=== PATIENT | male | born 1955 | race Caucasian/White ===

== ENCOUNTER 2018-01-27 08:15 | Day surgery (SDC) | payer OTHER ==
[2018-01-26 10:21] VITALS: BMI 23.8
[~2018-01-27 08:15] MED LIST: LACTATED RINGERS 1,000 ML IV SCH
[2018-01-27 09:21] VITALS: RESP 16; TEMP 98.2
[2018-01-27] MEDS ORDERED: LIDOCAINE 1% 20 ML VIAL (10MG/ML) FOR IV START INTRADERMA ONE (09:26)
[2018-01-27] MEDS ORDERED: LIDOCAINE 1% INJ 10MG/ML (20 ML MDV) ONE (09:38)
[2018-01-27] MEDS ORDERED: PROPOFOL 10 MG/ML 20 ML VIAL IV ONE (09:38)
--- NOTE | 2018-01-27 09:52 | P.PCN ---
Date of Procedure: 01/27/18 Procedure(s) Performed: BRIEF HISTORY: Patient is a 62-year-old pleasant male, scheduled for an elective colonoscopy as a part of evaluation of history of colon polyps. PROCEDURE PERFORMED: Colonoscopy with snare polypectomy. PREOPERATIVE DIAGNOSIS: History of colon polyps IV sedation per Anesthesia. PROCEDURE: After informed consent was obtained, the patient, was brought into the endoscopy unit. IV sedation was administered by Anesthesia under continuous monitoring. Digital rectal examination was normal. Initially the Olympus CF- 160 flexible video colonoscope was then inserted in the rectum, gradually advanced into the cecum without any difficulty. Careful examination was performed as the scope was gradually being withdrawn. Ileocecal valve and the appendiceal orifice were visualized and appeared normal. Prep was excellent. In the base of the cecum there was a 1.5 cm broad-based polyp removed by snare polypectomy Mucosa of the cecum, ascending colon, appeared normal. In the transverse colon there was a 5 mm polyp removed by snare polypectomy. The rest of the transverse colon, descending colon, sigmoid colon, and rectum appeared normal. In the distal sigmoid colon there was a 1 cm polyp removed by snare polypectomy. Retroflexion was performed in the rectum and no lesions were seen. The patient tolerated the procedure well. IMPRESSION: 1.5 and admitted broad-based cecal polyp status post snare polypectomy 5 mm transverse colon polyp status post snare polypectomy. 1 cm distal sigmoid colon polyp status post polypectomy RECOMMENDATIONS: Findings of this examination were discussed with the patient as well as his family. He was advised to follow with the biopsy results. If the biopsy shows a tubular adenoma, he can have a repeat colonoscopy in 3 years.
[2018-01-27 10:39] VITALS: BP 153/80; PULSE 73
== END 2018-01-27 11:08 | disposition home or self-care (01) ==
LOC: ORWHC2ENDO 08:15
PROVIDERS: ATTEND Internal Medicine Gastroenterology
DX: Z12.11 Encounter for screening for malignant neoplasm of colon (principal); D12.0 Benign neoplasm of cecum; K63.5 Polyp of colon; E78.5 Hyperlipidemia, unspecified; K21.9 Gastro-esophageal reflux disease without esophagitis; Z86.010 Personal history of colon polyps; Z88.0 Allergy status to penicillin; Z79.1 Long term (current) use of non-steroidal anti-inflammatories (NSAID); Z79.82 Long term (current) use of aspirin; Z79.899 Other long term (current) drug therapy
CPT/HCPCS: 88305; 45385; J2001; J2704

== ENCOUNTER 2021-01-23 07:24 | Day surgery (SDC) | payer MEDICARE, OTHER ==
[2021-01-21 11:44] VITALS: BMI 24.3
[~2021-01-23 07:24] MED LIST changes: +LIDOCAINE 1% (10MG/ML) FOR IV START INTRADERMA PRN
[2021-01-23 08:09] VITALS: RESP 16; TEMP 96.9
[2021-01-23] MEDS ORDERED: PROPOFOL 10 MG/ML 20 ML VIAL IV ONE (09:06)
--- NOTE | 2021-01-23 09:24 | P.PCN ---
Date of Procedure: 01/23/21 Procedure(s) Performed: BRIEF HISTORY: Patient is a 65-year-old pleasant white male scheduled for an elective colonoscopy as a part of evaluation of prior history of colon polyps. Last colonoscopy was 3 years ago. PROCEDURE PERFORMED: Colonoscopy with snare polypectomy. PREOPERATIVE DIAGNOSIS: History of colon polyps. IV sedation per Anesthesia. PROCEDURE: After informed consent was obtained, the patient, was brought into the endoscopy unit. IV sedation was administered by Anesthesia under continuous monitoring. Digital rectal examination was normal. Initially the Olympus CF-160 flexible video colonoscope was then inserted in the rectum, gradually advanced into the cecum without any difficulty. Careful examination was performed as the scope was gradually being withdrawn. Ileocecal valve and the appendiceal orifice were visualized and appeared normal. Prep was excellent. Mucosa of the cecum appeared normal. There was a 5 mm polyp in the base of cecum there was removed by snare polypectomy. In the ascending colon there was a 1.5 cm broad-based polyp removed by snare polypectomy. Rest of the in the transverse colon there was a 3 mm and 5 mm sessile polyp removed by snare polypectomy., ascending colon, transverse colon, descending colon, sigmoid colon, and rectum appeared normal. Retroflexion was performed in the rectum and no lesions were seen. The patient tolerated the procedure well. IMPRESSION: 5 mm cecal polyp status post polypectomy 1.5 cm broad-based ascending colon polyp status post polypectomy 3 mm and 5 mm transverse colon polyp status post snare polyp RECOMMENDATIONS: Findings of this examination were discussed with the patient as well as his family.. He was advised to follow with the biopsy results. If the biopsy shows an adenoma he can have a repeat colonoscopy in 3 years.
[2021-01-23 09:45] VITALS: BP 130/88; PULSE 64
== END 2021-01-23 10:07 | disposition home or self-care (01) ==
LOC: ORWHC2ENDO 07:24
PROVIDERS: ATTEND Internal Medicine Gastroenterology
DX: Z12.11 Encounter for screening for malignant neoplasm of colon (principal); D12.0 Benign neoplasm of cecum; D12.2 Benign neoplasm of ascending colon; D12.3 Benign neoplasm of transverse colon; Z86.010 Personal history of colon polyps; I10 Essential (primary) hypertension; E78.5 Hyperlipidemia, unspecified; Z88.0 Allergy status to penicillin; Z79.1 Long term (current) use of non-steroidal anti-inflammatories (NSAID); Z79.899 Other long term (current) drug therapy
CPT/HCPCS: 45385; 88305

== ENCOUNTER → 2022-09-01 | Outpatient (CLI) | payer MEDICARE, OTHER ==
--- NOTE | 2022-09-02 06:07 | MR ---
EXAMINATION TYPE: MR knee RT wo con DATE OF EXAM: 09/01/2022 COMPARISON: Outside right knee x-ray August 08, 2022 HISTORY: Right knee pain x 2 mos, no hx of trauma. TECHNIQUE: Multiplanar, multisequence imaging of the right knee is performed without IV contrast. FINDINGS: MEDIAL MENISCUS: Some medial extrusion of medial meniscus on coronal images. [place] shaped increase d signal posterior horn extends to central body abutting the inferior articular surface. LATERAL MENISCUS: Anterior and posterior horns are intact without tear. CRUCIATE LIGAMENTS: The anterior and posterior cruciate ligaments are intact and unremarkable. COLLATERAL LIGAMENTS: The medial collateral ligament and lateral collateral ligament complex are inta ct and unremarkable. EXTENSOR MECHANISM: Visualized quadriceps and patellar tendons are intact. EFFUSION: No significant suprapatellar joint effusion. POPLITEAL CYST: Small amount of ill-defined fluid consistent with small leaking popliteal cyst. Some septated thin-walled cystic change superior to this is evident. TRICOMPARTMENT SPACES: Mild tricompartment joint space loss. No significant spurring. CARTILAGE: Tricompartmental articular cartilage is preserved. BONE MARROW SIGNAL: No focal abnormal marrow signal is appreciated. OTHER: No additional significant abnormality is appreciated. IMPRESSION: 1. Full-thickness tear medial meniscus involving posterior horn extending into the central body. 2. Mild tricompartment degenerative changes as detailed above. 3. Small leaking popliteal cyst.
== END | disposition home or self-care (01) ==
LOC: RADMRIMAIN 19:55
PROVIDERS: ATTEND Orthopaedic Surgery
DX: M71.21 Synovial cyst of popliteal space [Baker], right knee (principal)